=== PATIENT | male | born 1960 | race Caucasian/White ===

== ENCOUNTER 2016-08-31 02:58 | Emergency (ER) | payer OTHER ==
[~2016-08-31] VITALS: Ht 177.8 cm; Wt 91.0 kg
[~2016-08-31 02:58] MED LIST: ASPI81TA82 PO; CARV12.52 PO; CLON.2 PO; DIOV160T3 PO; FENO1TAB76 PO; FISH100020 PO; GLUC1000 PO; LEVEMIR SQ; LORTA5 PO; OMEP20TA39 PO; TICA90 PO; ULTR50TA PO
[2016-08-31 03:09] VITALS: BP 128/79; PULSE 106; RESP 16; TEMP 97.8; O2SAT 97
[2016-08-31] MEDS ORDERED: ASPI81TA19 (03:28)
[2016-08-31] MEDS ORDERED: CARV12.52 PO (03:28)
[2016-08-31] MEDS ORDERED: METF1000 PO (03:28)
[2016-08-31] MEDS ORDERED: BRIL90TA PO (03:28)
[2016-08-31] MEDS ORDERED: DIOV160T3 PO (03:28)
[2016-08-31] MEDS ORDERED: FISH1000 (03:28)
[2016-08-31 03:48] LABS: AUTOMATED NEUTROPHIL # 5.6 TH/MM3 (1.8-7.7); BASOPHIL # 0.1 TH/MM3 (0-0.2); BASOPHIL % 0.6 % (0.0-2.0); EOSINOPHIL # 0.2 TH/MM3 (0-0.4); EOSINOPHIL % 2.1 % (0.0-4.0); HEMATOCRIT 44.7 % (39.0-51.0); HEMO FLAGS DIFF FINAL; LYMPH % 37.8 % (9.0-44.0); MEAN CELL VOLUME 93.9 FL (80.0-100.0); MEAN CORPUSCULAR HEMOGLOBIN 32.3 PG (27.0-34.0); MEAN CORPUSCULAR HGB CONC 34.4 % (32.0-36.0); MONO % 6.8 % (0.0-8.0); NEUT % 52.7 % (16.0-70.0); PLATELET COUNT 239 TH/MM3 (150-450); RED BLOOD COUNT 4.76 MIL/MM3 (4.50-5.90); RED CELL DISTRIBUTION WIDTH 16.3 % (11.6-17.2); WHITE BLOOD COUNT 10.7 TH/MM3 (4.0-11.0)
[2016-08-31 04:31] LABS: ANION GAP 12 MEQ/L (5-15)
[2016-08-31 04:39] LABS: ALKALINE PHOSPHATASE 72 U/L (45-117); ALT (GPT) 16 U/L (12-78); AST (GOT) 17 U/L (15-37); BICARBONATE 22.6 MEQ/L (21.0-32.0); BLOOD UREA NITROGEN 13 MG/DL (7-18); CHLORIDE 100 MEQ/L (98-107); GLOMERULAR FILTRATION RATE 89 ML/MIN (>89); POTASSIUM 3.5 MEQ/L (3.5-5.1); SODIUM (NA) 135 MEQ/L (136-145); TOTAL BILIRUBIN ADULT 0.2 MG/DL (0.2-1.0)
[2016-08-31 04:50] LABS: ACETAMINOPHEN LESS THAN 2.0 MCG/ML (10.0-30.0)
--- NOTE | 2016-08-31 05:07 | PD ---
HPI Chief Complaint: Psychiatric Symptoms Time Seen by Provider: 05:02 Travel History International Travel<30 days: No Contact w/Intl Traveler<30days: No Traveled to known affect area: No History of Present Illness HPI 56-year-old white male presents to emergency department under a Amezcua act by PD. The patient states that he's been feeling increasingly depressed after from his in June. He states that they are in the process of getting a divorce. This is a second failed marriage for him. He states that they were for 16 years. He had raised his 's child as if it was his own. The patient also states that his has gone back to her ex- . This also has bothered him. The patient states that he had sent a text message to his ex- of a suicidal nature. He states that he is truly is not suicidal. He has no intention on hurting himself. He has no homicidal ideation. No toxic ingestions. No recent illness. He does have a history of hypertension, coronary artery disease, and diabetes. He states that he continues to smoke and drink alcohol. He had alcohol earlier this evening. He denies any drugs. PFSH Past Medical History Hx Anticoagulant Therapy: Yes Cardiac Catheterization: Yes Cardiovascular Problems: Yes (MO X 3, STENTS X 5) Diabetes: Yes Patient Takes Glucophage: Yes Diminished Hearing: No Hypertension: Yes Respiratory: Yes (Sleep apnea) Myocardial Infarction: Yes (X3) Tetanus Vaccination: < 5 Years Past Surgical History Coronary Stent: Yes (X5) Social History Alcohol Use: Yes (EVERYDAY ) Tobacco Use: Yes (1.5 PPD) Substance Use: No Allergies-Medications (Allergen,Severity, Reaction): Coded Allergies: No Known Allergies (Unverified , 08/31/16) Reported Meds & Prescriptions Reported Meds & Active Scripts Active Reported Diovan Hct (Valsartan-Hydrochlorothiazide) 160-12.5 Mg Tab 1 Tab PO DAILY Brilinta (Ticagrelor) 90 Mg Tab 90 Mg PO BID Fish Oil (Gold[place]-3 Fatty Acids) 1,000 Mg Cap Metformin (Metformin HCl) 1,000 Mg Tab 1,000 Mg PO BIDPC With meals Carvedilol 12.5 Mg Tab 12.5 Mg PO BID Aspir-Low (Aspirin) 81 Mg Tabdr Review of Systems Except as stated in HPI: all other systems reviewed are Neg General / Constitutional: No: Fever, Chills Eyes: No: Diploplia, Blurred Vision HENT: No: Headaches, Lightheadedness Cardiovascular: No: Chest Pain or Discomfort, Palpitations Respiratory: Positive: Cough, No: Shortness of Breath Gastrointestinal: No: Nausea, Vomiting Genitourinary: No: Dysuria, Hematuria Musculoskeletal: No: Myalgias, Arthralgias Skin: No Rash, No Itching Neurologic: No: Weakness, Syncope Psychiatric: Positive: Depression, Mood Disorder, No: Anxiety, Suicidal Ideations, Disorder of Thought, Substance Abuse, Homicidal Ideation Physical Exam Narrative GENERAL: Well-nourished, well-developed patient. SKIN: Warm and dry. HEAD: Normocephalic and atraumatic. EYES: No scleral icterus. No injection or drainage. ENT: No nasal drainage noted. Mucous membranes pink. Airway patent. NECK: Supple, trachea midline. Moves head freely without obvious discomfort. CARDIOVASCULAR: Regular rate and rhythm without murmurs, gallops, or rubs. RESPIRATORY: Breath sounds equal bilaterally. No accessory muscle use. GASTROINTESTINAL: Abdomen soft, non-tender, nondistended. EXTREMITIES: No cyanosis or edema. BACK: Nontender without obvious deformity. No CVA tenderness. NEURO: Patient is alert and oriented. no sensorimotor deficits. Nonfocal. Normal speech. PSYCH: No delusions. No auditory or visual hallucinations. Data Data Last Documented VS Vital Signs Date Time Temp Pulse Resp B/P Pulse Ox O2 Delivery O2 Flow Rate FiO2 08/31/16 03:13 16 08/31/16 03:09 97.8 106 128/79 97 Orders Complete Blood Count With Diff (08/31/16 03:09) Comprehensive Metabolic Panel (08/31/16 03:09) Psych Screen (08/31/16 03:09) Drug Screen, Random Urine (08/31/16 03:09) Alcohol (Ethanol) (08/31/16 03:09) Salicylates (Aspirin) (08/31/16 03:09) Tylenol (Acetaminophen) (08/31/16 03:09) Labs Laboratory Tests Test 08/31/16 03:30 White Blood Count 10.7 TH/MM3 Red Blood Count 4.76 MIL/MM3 Hemoglobin 15.4 GM/DL Hematocrit 44.7 % Mean Corpuscular Volume 93.9 FL Mean Corpuscular Hemoglobin 32.3 PG Mean Corpuscular Hemoglobin 34.4 % Concent Red Cell Distribution Width 16.3 % Platelet Count 239 TH/MM3 Mean Platelet Volume 8.1 FL Neutrophils (%) (Auto) 52.7 % Lymphocytes (%) (Auto) 37.8 % Monocytes (%) (Auto) 6.8 % Eosinophils (%) (Auto) 2.1 % Basophils (%) (Auto) 0.6 % Neutrophils # (Auto) 5.6 TH/MM3 Lymphocytes # (Auto) 4.0 TH/MM3 Monocytes # (Auto) 0.7 TH/MM3 Eosinophils # (Auto) 0.2 TH/MM3 Basophils # (Auto) 0.1 TH/MM3 CBC Comment DIFF FINAL Differential Comment Sodium Level 135 MEQ/L Potassium Level 3.5 MEQ/L Chloride Level 100 MEQ/L Carbon Dioxide Level 22.6 MEQ/L Anion Gap 12 MEQ/L Blood Urea Nitrogen 13 MG/DL Creatinine 0.88 MG/DL Estimat Glomerular Filtration 89 ML/MIN Rate Random Glucose 123 MG/DL Calcium Level 9.0 MG/DL Total Bilirubin 0.2 MG/DL Aspartate Amino Transf 17 U/L (AST/SGOT) Alanine Aminotransferase 16 U/L (ALT/SGPT) Alkaline Phosphatase 72 U/L Total Protein 7.1 GM/DL Albumin 3.5 GM/DL Salicylates Level 3.6 MG/DL Acetaminophen Level LESS THAN 2.0 MCG/ML Ethyl Alcohol Level 223 MG/DL MDM Medical Decision Making Medical Screen Exam Complete: Yes Emergency Medical Condition: Yes Medical Record Reviewed: Yes Interpretation(s) Laboratory Tests Test 08/31/16 03:30 White Blood Count 10.7 TH/MM3 Red Blood Count 4.76 MIL/MM3 Hemoglobin 15.4 GM/DL Hematocrit 44.7 % Mean Corpuscular Volume 93.9 FL Mean Corpuscular Hemoglobin 32.3 PG Mean Corpuscular Hemoglobin 34.4 % Concent Red Cell Distribution Width 16.3 % Platelet Count 239 TH/MM3 Mean Platelet Volume 8.1 FL Neutrophils (%) (Auto) 52.7 % Lymphocytes (%) (Auto) 37.8 % Monocytes (%) (Auto) 6.8 % Eosinophils (%) (Auto) 2.1 % Basophils (%) (Auto) 0.6 % Neutrophils # (Auto) 5.6 TH/MM3 Lymphocytes # (Auto) 4.0 TH/MM3 Monocytes # (Auto) 0.7 TH/MM3 Eosinophils # (Auto) 0.2 TH/MM3 Basophils # (Auto) 0.1 TH/MM3 CBC Comment DIFF FINAL Differential Comment Sodium Level 135 MEQ/L Potassium Level 3.5 MEQ/L Chloride Level 100 MEQ/L Carbon Dioxide Level 22.6 MEQ/L Anion Gap 12 MEQ/L Blood Urea Nitrogen 13 MG/DL Creatinine 0.88 MG/DL Estimat Glomerular Filtration 89 ML/MIN Rate Random Glucose 123 MG/DL Calcium Level 9.0 MG/DL Total Bilirubin 0.2 MG/DL Aspartate Amino Transf 17 U/L (AST/SGOT) Alanine Aminotransferase 16 U/L (ALT/SGPT) Alkaline Phosphatase 72 U/L Total Protein 7.1 GM/DL Albumin 3.5 GM/DL Salicylates Level 3.6 MG/DL Acetaminophen Level LESS THAN 2.0 MCG/ML Ethyl Alcohol Level 223 MG/DL Differential Diagnosis MDM: High Differential diagnoses: Schizophrenia, schizoaffective disorder, bipolar, anxiety, depression, adjustment reaction, mood disorder NOS, ODD, depressive disorder NOS, dementia, dementia with agitation, psychosis NOS, substance induced mood disorder, intermittent explosive disorder, Asperger syndrome, infection,electrolyte abnormality, malingering. Narrative Course Mental health screening discussed with the patient. Psychiatric screen ordered. The patient has been medically cleared. This is major depression Diagnosis Primary Impression: Major depression Qualified Code: F32.1 - Moderate single current episode of major depressive disorder Disposition: 01 DISCHARGE HOME Condition: Stable Byron Cantu Aug 31, 2016 05:06
[2016-08-31 06:21] VITALS: BP 123/62; PULSE 97; RESP 20; O2SAT 95
[2016-08-31 10:09] LABS: AMPHETAMINE, URINE NEG (NEG); BARBITURATES, URINE NEG (NEG); COCAINE, URINE NEG (NEG)
[2016-08-31 13:24] VITALS: BP 170/98; PULSE 89; RESP 18; TEMP 98.6; O2SAT 94
--- NOTE | 2016-08-31 15:43 | PD ---
History of Present Illness Chief Complaint: Psychiatric Symptoms Time Seen by Provider: 15:30 Travel History International Travel<30 Days: No Contact w/Intl Traveler<30days: No Known affected area: No Legal Status Legal Status: Amezcua Act Amezcua Act Signed By: Murali Montanez History of Present Illness: This is a 56-year-old male who is presenting under a Amezcua act after making a suicide threat to his of 16 years. Apparently they are getting and she has left him for her ex-. The patient is distraught about this and the fact that he has raised her child as his own for many years. He was consuming alcohol last night and does admit to some depression and making a vague suicidal comment. However at this time he is adamantly denying any suicidal ideation, plan or intent. He has multiple medical problems for which she takes multiple medications. He has not had his medicines today and would like to return home so that he might treat himself. (See above medical clearance note.) At this time the patient is calm and cooperative. He denies suicidal or homicidal ideation. He denies psychotic symptoms. He verbally contracts for safety. He is currently employed, installing satellites and tennis. PFSH Past Medical History Hx Anticoagulant Therapy: Yes Cardiac Catheterization: Yes Cardiovascular Problems: Yes (MD X 3, STENTS X 5) Diabetes: Yes Patient Takes Glucophage: Yes Diminished Hearing: No Hypertension: Yes Respiratory: Yes (Sleep apnea) Myocardial Infarction: Yes (X3) Tetanus Vaccination: < 5 Years Past Surgical History Coronary Stent: Yes (X5) Psychiatric History Psychiatric History Hx Psychiatric Treatment: Denies any Hx of tx by psychiatrist. History of Inpatient Treatment: No Guns or firearms in home: No Social History Hx Alcohol Use: Yes (EVERYDAY ) Hx Tobacco Use: Yes (1.5 PPD) Hx Substance Use: No (Patient denies abuse. ) Substance Use Type: Alcohol Hx of Substance Use Treatment: No Allergies-Medications (Allergen,Severity, Reaction): Coded Allergies: No Known Allergies (Unverified , 08/31/16) Reported Meds & Prescriptions Reported Meds & Active Scripts Active Reported Diovan Hct (Valsartan-Hydrochlorothiazide) 160-12.5 Mg Tab 1 Tab PO DAILY Brilinta (Ticagrelor) 90 Mg Tab 90 Mg PO BID Fish Oil ([place]-3 Fatty Acids) 1,000 Mg Cap Metformin (Metformin HCl) 1,000 Mg Tab 1,000 Mg PO BIDPC With meals Carvedilol 12.5 Mg Tab 12.5 Mg PO BID Aspir-Low (Aspirin) 81 Mg Tabdr Review of Systems ROS Limitations: Clinical Condition Except as stated in HPI: all other systems reviewed are Neg Exam Alert: Yes [place]: Person, Place, Date, Situation Mood: Calm Affect: Euthymic Speech: Clear, Logical Eye Contact: Normal Memory Intact: Immediate, Recent, Remote Hallucinations: Other Delusions: No Delusion Type: Other Insight/Judgement Mildly impaired insight and judgment but adequate. MDM Medical Decision Making Medical Record Reviewed: Yes Assessment/Plan This physician does not feel the patient requires admission for psychiatric treatment. His Amezcua act was lifted and he was advised to seek outpatient counseling. He was also advised to stop any alcohol use at this time. Orders Complete Blood Count With Diff (08/31/16 03:09) Comprehensive Metabolic Panel (08/31/16 03:09) Psych Screen (08/31/16 03:09) Drug Screen, Random Urine (08/31/16 03:09) Alcohol (Ethanol) (08/31/16 03:09) Salicylates (Aspirin) (08/31/16 03:09) Tylenol (Acetaminophen) (08/31/16 03:09) Diet Regular Basic (08/31/16 Breakfast) Diet Regular Basic (08/31/16 Lunch) Diet Regular Basic (08/31/16 Dinner) Results Vital Signs Date Time Temp Pulse Resp B/P Pulse Ox O2 Delivery O2 Flow Rate FiO2 08/31/16 13:24 98.6 89 18 170/98 94 Room Air 08/31/16 06:21 97 20 123/62 95 08/31/16 03:13 16 08/31/16 03:09 97.8 106 16 128/79 97 Laboratory Tests Test 08/31/16 08/31/16 03:30 09:30 White Blood Count 10.7 Red Blood Count 4.76 Hemoglobin 15.4 Hematocrit 44.7 Mean Corpuscular Volume 93.9 Mean Corpuscular Hemoglobin 32.3 Mean Corpuscular Hemoglobin 34.4 Concent Red Cell Distribution Width 16.3 Platelet Count 239 Mean Platelet Volume 8.1 Neutrophils (%) (Auto) 52.7 Lymphocytes (%) (Auto) 37.8 Monocytes (%) (Auto) 6.8 Eosinophils (%) (Auto) 2.1 Basophils (%) (Auto) 0.6 Neutrophils # (Auto) 5.6 Lymphocytes # (Auto) 4.0 Monocytes # (Auto) 0.7 Eosinophils # (Auto) 0.2 Basophils # (Auto) 0.1 CBC Comment DIFF FINAL Differential Comment Sodium Level 135 Potassium Level 3.5 Chloride Level 100 Carbon Dioxide Level 22.6 Anion Gap 12 Blood Urea Nitrogen 13 Creatinine 0.88 Estimat Glomerular Filtration 89 Rate Random Glucose 123 Calcium Level 9.0 Total Bilirubin 0.2 Aspartate Amino Transf 17 (AST/SGOT) Alanine Aminotransferase 16 (ALT/SGPT) Alkaline Phosphatase 72 Total Protein 7.1 Albumin 3.5 Salicylates Level 3.6 Acetaminophen Level LESS THAN 2.0 Ethyl Alcohol Level 223 Urine Opiates Screen NEG Urine Barbiturates Screen NEG Urine Amphetamines Screen NEG Urine Benzodiazepines Screen NEG Urine Cocaine Screen NEG Urine Cannabinoids Screen NEG Diagnosis Primary Impression: Adjustment disorder with mixed disturbance of emotions and conduct Disposition: 01 DISCHARGE HOME Condition: Stable Hansel Collins MD Aug 31, 2016 15:43
[2016-08-31 15:54] VITALS: BP 188/110; PULSE 87; RESP 18; TEMP 97.5; O2SAT 97
== END 2016-08-31 16:56 | disposition home or self-care (01) ==
LOC: NEPA 02:58 → NEPJ 16:56
DX: F43.25 Adjustment disorder with mixed disturbance of emotions and conduct (principal)
CPT/HCPCS: 80053; 80307; 80320; 80329; 85025; 99283; G0480